=== PATIENT | female | born 1995 | race Caucasian/White ===

== ENCOUNTER 2021-11-08 20:32 | Emergency (ER) | payer OTHER ==
[~2021-11-08] VITALS: Ht 157.5 cm; Wt 131.0 kg
[2021-11-08] MEDS ORDERED: METFORMIN HCL500 M2 PO (21:59)
== END 2021-11-08 22:32 | disposition home or self-care (01) ==
LOC: ED 20:32
DX: E11.9 Type 2 diabetes mellitus without complications (principal); Z88.8 Allergy status to other drugs, medicaments and biological substances
CPT/HCPCS: 80053; 83036; 83735; 84703; 85025; J1885; J2405; J7030

== ENCOUNTER 2022-05-28 18:38 | Emergency (ER) | payer OTHER ==
[~2022-05-28] VITALS: Ht 157.5 cm; Wt 130.6 kg
[~2022-05-28 18:38] MED LIST: METFORMIN HCL500 M2 PO
== END 2022-05-28 20:30 | disposition home or self-care (01) ==
LOC: ED 18:38
DX: H66.92 Otitis media, unspecified, left ear (principal); H60.92 Unspecified otitis externa, left ear; Z88.8 Allergy status to other drugs, medicaments and biological substances
CPT/HCPCS: 99282

== ENCOUNTER 2024-06-25 14:47 | Emergency (ER) | payer OTHER ==
[~2024-06-25] VITALS: Ht 157.5 cm; Wt 122.5 kg
--- OUTSIDE RECORDS SUMMARY | 2024-06-25 14:54 | XMS ---
PreManage Notification: [employer] Events 1 event(s) in the past 18 months Most recent security events: Elopement at [facility] 06/19/2023 16:19 - Patient eloped with IV in place. - Patient eloped before treatment completed. - Patient with suicidal and/or homicidal ideations eloped. Details: Patient LWBS CRITERIA MET - Group Notification CARE PROVIDERS -[facility] Dentist: [employer] [facility] PHONE: [phone] -, Deepti- Dentist: [employer] [facility] PHONE: [phone] -Roxanne- Dentist: [employer] [facility] PHONE: [phone] [facility] Pediatrics Current CARE SYSTEM \[facility] PHONE: [phone] Deana has no Care Guidelines for this patient. Bang VISIT COUNT (12 MO.) [address] [facility] TOTAL 1 NOTE: Visits indicate total known visits. ED/UCC VISIT TRACKING (12 MO.) 06/25/2024 14:[address] [facility] [place] TYPE: Emergency COMPLAINT: - FOOT PAIN INPATIENT VISIT TRACKING (12 MO.) No inpatient visits to display in this time frame [email or web address]
[2024-06-25 16:20] VITALS: BP 113/64
== END 2024-06-25 16:20 | disposition home or self-care (01) ==
LOC: ED 14:47
DX: M79.672 Pain in left foot (principal); R73.03 Prediabetes; Z88.2 Allergy status to sulfonamides; Z88.8 Allergy status to other drugs, medicaments and biological substances
CPT/HCPCS: 73630; 99283